=== PATIENT | male | born 1995 | race Caucasian/White ===

== ENCOUNTER 2024-12-18 23:29 | Day surgery (SDC) | payer OTHER, SELFPAY ==
[2024-12-18 14:40] VITALS: BMI 20.4
[2024-12-18 14:46] VITALS: BP 128/92
[2024-12-18 15:11] LABS: Hematocrit 47.3 % (39.0-52.0); Hemoglobin 16.5 g/dL (13.0-18.0); Mean Corp Hgb Conc. 34.9 g/dL (33.0-37.0); Mean Corpuscular Volume 86.2 fL (80.0-94.0); Nucleated Red Blood Cells % 0 % (-); Platelet Count 234 10^3/uL (130-400); Red Cell Dist. Width 12.3 % (11.5-14.5)
[2024-12-18 15:26] LABS: ALT (SGPT) 26 U/L (0-50); AST (SGOT) 22 U/L (17-59); Albumin 5.2 g/dl (3.5-5.0); Alkaline Phosphatase 52 U/L (38-126); Blood Urea Nitrogen 10 mg/dl (9-20); Calcium 10.1 mg/dl (8.4-10.2); Carbon Dioxide 28 mmol/L (22-30); Chloride 102 mmol/L (98-107); Glucose 105 mg/dl (70-99); Lipase 70 U/L (23-300); Potassium 4.2 mmol/L (3.5-5.1); Sodium 137 mmol/L (135-145); Total Protein 8.7 g/dl (6.3-8.2); eGFR > 60.00
[2024-12-18 15:45] LABS: Urine Character Clear (Clear)
--- NOTE | 2024-12-18 17:14 | ED.GENMED ---
History of Present Illness
<VEGA Rucker - Last Filed: 12/20/24 13:15>
General
Chief Complaint: Abdominal Pain
Source: patient
Exam Limitations: none
Time Seen by Provider: 12/18/24 16:43
Nursing documentation reviewed up to this point in time: agreed with
History of Present Illness
History of Present Illness:
29 yr old male presents to the ER for evaluation of right lower quadrant pain which started last night. Patient was able to sleep however woke up with persistent pain. He does feel slight pain on the right back but this feels more of an ache. He
denies any nausea vomiting diarrhea. He reports minimal burning with urination. No prior history kidney stone. No injury. Patient denies any testicle pain.
Past History
<VEGA Rucker - Last Filed: 12/20/24 13:15>
Past History
ED Past Medical History: None
ED Past Surgical History: None
Social History
Tobacco: Non-smoker
Phy Exam
<VEGA Rucker - Last Filed: 12/20/24 13:15>
General Physical Exam
General Presentation: no apparent distress
General age: appears stated age
General Skin: warm and dry
General Habitus: normal
General Mental: alert
General Hydration: appears well hydrated
Gastrointestinal Exam
Gastrointestinal Exam: soft and other (RLQ tenderness )
Neurological Exam
Neurological Exam: alert and oriented x3
Musculoskeletal Exam
Musculoskeletal Exam: full ROM
Skin Exam
Skin Exam: normal color and warm/dry
Psychiatric Exam
Psychiatric Exam: normal mood/affect
Course
<VEGA Rucker - Last Filed: 12/20/24 13:15>
Orders/Labs/Results
Orders:
Orders
12/18/24 14:55
Complete Blood Count/With Diff Urgent
Comprehensive Metabolic Panel Urgent
Lipase Urgent
12/18/24 15:19
Urinalysis Reflex To Culture Urgent
Date Specimen was Collected: 12/18/24
Time Specimen was Collected: 14:50
Urine Microscopic Reflex Cult Urgent
Urine Culture Urgent
DWIGHT Source: U
Specimen Description:
Date Specimen was Collected: 12/18/24
Time Specimen was Collected: 14:50
12/18/24 17:12
Iohexol [Omnipaque] See Protocol PO NOW STA
12/18/24 17:13
CT Abd/pel W Iv And Oral Contr Urgent
Comment:
Reason For Exam: rlq pain
0.9% Sodium Chloride 1000 ml [Nss] 1,000 ml IV BOLUS
Ketorolac [Toradol] 15 mg IV NOW STA
12/18/24 21:28
Piperacillin/Tazo 3.375 Gram [Zosyn] 3.375 gram in 50 ml IV NOW
12/18/24 21:38
Morphine Sulfate 4 mg IV NOW STA
12/18/24 23:00
Admit/Transfer Patient As Directed
Co-Sign Provider:
Level of Care: Observation services
Assign to:: Medical/Surgical
Physician / Group: Dr. Lanre Sykes, General Surgery
Diagnosis: Acute appendicitis
12/18/24 23:01
PRN Pain Medication Management As Directed
May give lesser potent ordered pain med per pt: Yes
preference::
Protocol:: Medication orders for pain may be administered in a
manner that supports deferring to patient preference
when the pt is:
- Requesting an ordered lesser potent pain medication.
Least to most potent pain medications are defined
as: acetaminophen < NSAID < tramadol < opioids
(morphine, oxycodone, hydromorphone).
- Requesting a lesser dose of the same medication IF
ORDERED.
- Requesting a less intrusive route of administration
if both routes are prescribed by the provider (PO <
IV).
12/18/24 23:02
Code Status As Directed
Resuscitation Status: Full Code
12/18/24 23:26
Morphine Sulfate 2 mg IV Q2HPRN PRN
12/19/24 00:51
Benzocaine/Menthol [Anesthetic Lozenge] 1 lozenge PO Q4HPRN PRN
Lactated Ringers [Lr] 1,000 ml IV 75 mls/hr
Morphine Sulfate 4 mg IV Q2HPRN PRN
Ondansetron Injectable [Zofran] 4 mg IV Q6HPRN PRN
12/19/24 00:51
Activity As Directed
Activity Level: Out of Bed-Early Mobility
Anti-embolism (JOSELIN) Hose As Directed
Type: Thigh high
Intake/ Output As Directed
Frequency: Per unit guidelines
Pneumatic Compression Sleeves As Directed
Type: Thigh high
Vital Signs As Directed
Frequency: Per unit guidelines
O2 Therapy [RESP] Routine
Titrate/Wean O2 to maintain O2 sat greater than (%): 92
DX Deep Vein Thrombosis Video Routine
12/19/24 02:00
Piperacillin/Tazo 3.375 Gram [Zosyn] 3.375 gram in 50 ml IV Q6H
12/19/24 06:00
Electrocardiogram (*1) IN AM
Reason for Study: PreOp
NPO
Allow oral meds: Yes
Allow clear liquids: No
NPO with Ice Chips: No
12/19/24 06:42
Acetaminophen [Tylenol] 650 mg PO Q4HPRN PRN
12/19/24 07:38
Basic Metabolic Panel IN AM
Complete Blood Count/No Diff IN AM
12/19/24 08:01
HYDROmorphone [Dilaudid] 1 mg .ROUTE .STK-MED ONE
12/19/24 09:40
Fentanyl Citrate/Pf [Sublimaze] 25 mcg IV [id number] PRN
HYDROmorphone [Dilaudid] 0.25 mg IV PACU-Q5MPRN PRN
HYDROmorphone [Dilaudid] 0.5 mg IV PACU-Q5MPRN PRN
Ondansetron Injectable [Zofran] 4 mg IV PACU-ONCEPRN PRN
Prochlorperazine [Compazine] 5 mg IV PACU-ONCEPRN PRN
Notify MD As Directed
Notify physician if: for SDS patients with known or suspected sleep obstructive sleep apnea, monitor in the
PACU.
Notify MD for any apneic/desaturation episodes
O2 Therapy [RESP] Urgent
Titrate/Wean O2 to maintain O2 sat greater than (%): 92
Special Instructions: -Provide supplemental oxygen to achieve O2 sat of 92% or greater.
-After 15 min, may wean O2 and discontinue if patient is able to maintain O2 sat of 92%
or greater during recovery period.
If patient is a discharge home, without oxygen therapy, notify anestheiologist if
unable to maintain O2 SAT of 92% or greater on room air for MD clearance.
12/19/24 09:45
Normosol (Mult Electrolytes) [Normosol-R/Plasmalyte-A] 1,000 ml IV PER PROTOCOL
12/19/24 Lunch
Regular
At Your Request: Full Participation
Does patient need a safe tray?: No
12/19/24 10:05
Dexamethasone Sod Phosphate [Decadron] 20 mg .ROUTE .STK-MED ONE
Fentanyl Citrate/Pf [Sublimaze] 100 mcg .ROUTE .STK-MED ONE
Lidocaine HCl/Pf [Xylocaine-Mpf 1% Vial] 50 mg .ROUTE .STK-MED ONE
Midazolam HCl [Versed] 2 mg .ROUTE .STK-MED ONE
Ondansetron Injectable [Zofran] 4 mg .ROUTE .STK-MED ONE
Propofol [Diprivan] 20 ml .ROUTE .STK-MED
Rocuronium Melvin [Rocuronium] 50 mg .ROUTE .STK-MED ONE
12/19/24 10:11
Glucagon [GlucaGen] 1 mg .ROUTE .STK-MED ONE
12/19/24 11:03
Bupivacaine 0.25%Pf/Epinephrin [Sensorcaine-Epi 0.25%-0.0005] 30 ml .ROUTE .STK-MED ONE
12/19/24 11:53
OR Pathology Routine
Pre-Operative Diagnosis: ACUTE APPENDICITIS
Post-Operative Diagnosis: SAME
Operative Procedure: LAP APPY
Surgeon: KHADRA
Circulating Nurse: SANDRO
Specimen Type: APPENDIX
12/19/24 12:11
Ketorolac [Toradol] 30 mg .ROUTE .STK-MED ONE
12/19/24 12:16
ePHEDrine SULFATE [Emerphed] 50 mg .ROUTE .STK-MED ONE
12/19/24 12:21
Admit Patient As Directed
Co-Sign Provider:
Level of Care: Post Proc/Surg Recovery
Assign to:: Medical/Surgical
Physician / Group: Khadra / JIMMY
Diagnosis: Acute appendicitis
Reason for Overnight Stay: Standard of Care
Ketorolac [Toradol] 10 mg IV Q6HPRN PRN
Oxycodone [Roxicodone] 5 mg PO Q4HPRN PRN
Intake/ Output As Directed
Frequency: Per unit guidelines
PRN Pain Medication Management As Directed
May give lesser potent ordered pain med per pt: Yes
preference::
Protocol:: Medication orders for pain may be administered in a
manner that supports deferring to patient preference
when the pt is:
- Requesting an ordered lesser potent pain medication.
Least to most potent pain medications are defined
as: acetaminophen < NSAID < tramadol < opioids
(morphine, oxycodone, hydromorphone).
- Requesting a lesser dose of the same medication IF
ORDERED.
- Requesting a less intrusive route of administration
if both routes are prescribed by the provider (PO <
IV).
12/19/24 12:22
Rx Incentive Spirometry [RESP] Routine
Frequency: q1h while awake
# of times per hour: 10
12/19/24 12:30
Normosol (Mult Electrolytes) [Normosol-R/Plasmalyte-A] 1,000 ml IV 75 mls/hr
12/19/24 16:15
Discharge Patient As Directed
Do you have a designated caregiver: No
12/19/24 18:00
Enoxaparin Sodium [Lovenox] 40 mg SC QPM
Abnormal Lab Results
12/18/24 12/18/24 12/19/24
14:55 15:19 07:38
RBC 4.58 L 10^6/uL
(4.70-6.10)
Absolute Neuts (auto) 6.8 H 10^3/uL
(1.4-6.5)
Absolute Lymphs (auto) 1.1 L 10^3/uL
(1.2-3.4)
Absolute Monos (auto) 0.9 H 10^3/uL
(0.1-0.6)
Neutrophils % 76.3 H %
(42.2-75.2)
Lymphocytes % 12.3 L %
(20.5-51.1)
Monocytes % 9.9 H %
(1.7-9.3)
Glucose 105 H mg/dl
(70-99)
Total Protein 8.7 H g/dl
(6.3-8.2)
Albumin 5.2 H g/dl
(3.5-5.0)
Urine Ketones 1+ A
(Negative)
Ur Occult Blood Reflex 3+ A
(Negative)
Leukocyte Esterase Rfl 1+ A
(Negative)
Urine Albumin (Reflex) 2+ A
(Neg - Trace)
12/19/24 07:38
12/19/24 07:38
Vital Signs
Initial and Last Documented VS:
Initial Vital Signs
Temp Pulse Resp BP Pulse Ox
98.3 F 94 18 128/92 94
12/18/24 14:46 12/18/24 14:46 12/18/24 14:46 12/18/24 14:46 12/18/24 14:46
Last Documented Vital Signs
Temp Pulse Resp BP Pulse Ox
98.8 F 85 18 107/59 98
12/19/24 16:35 12/19/24 16:35 12/19/24 16:35 12/19/24 16:35 12/19/24 16:35
<Nikia Taylor PA-C - Last Filed: 12/19/24 01:49>
Orders/Labs/Results
Orders:
Orders
12/18/24 14:55
Complete Blood Count/With Diff Urgent
Comprehensive Metabolic Panel Urgent
Lipase Urgent
12/18/24 15:19
Urinalysis Reflex To Culture Urgent
Date Specimen was Collected: 12/18/24
Time Specimen was Collected: 14:50
Urine Microscopic Reflex Cult Urgent
Urine Culture Urgent
DWIGHT Source: U
Specimen Description:
Date Specimen was Collected: 12/18/24
Time Specimen was Collected: 14:50
12/18/24 17:12
Iohexol [Omnipaque] See Protocol PO NOW STA
12/18/24 17:13
CT Abd/pel W Iv And Oral Contr Urgent
Comment:
Reason For Exam: rlq pain
0.9% Sodium Chloride 1000 ml [Nss] 1,000 ml IV BOLUS
Ketorolac [Toradol] 15 mg IV NOW STA
12/18/24 21:28
Piperacillin/Tazo 3.375 Gram [Zosyn] 3.375 gram in 50 ml IV NOW
12/18/24 21:38
Morphine Sulfate 4 mg IV NOW STA
12/18/24 23:00
Admit/Transfer Patient As Directed
Co-Sign Provider:
Level of Care: Observation services
Assign to:: Medical/Surgical
Physician / Group: Dr. Lanre Sykes, General Surgery
Diagnosis: Acute appendicitis
12/18/24 23:01
PRN Pain Medication Management As Directed
May give lesser potent ordered pain med per pt: Yes
preference::
Protocol:: Medication orders for pain may be administered in a
manner that supports deferring to patient preference
when the pt is:
- Requesting an ordered lesser potent pain medication.
Least to most potent pain medications are defined
as: acetaminophen < NSAID < tramadol < opioids
(morphine, oxycodone, hydromorphone).
- Requesting a lesser dose of the same medication IF
ORDERED.
- Requesting a less intrusive route of administration
if both routes are prescribed by the provider (PO <
IV).
12/18/24 23:02
Code Status As Directed
Resuscitation Status: Full Code
12/18/24 23:26
Morphine Sulfate 2 mg IV Q2HPRN PRN
12/19/24 00:51
Benzocaine/Menthol [Anesthetic Lozenge] 1 lozenge PO Q4HPRN PRN
Lactated Ringers [Lr] 1,000 ml IV 75 mls/hr
Morphine Sulfate 4 mg IV Q2HPRN PRN
Ondansetron Injectable [Zofran] 4 mg IV Q6HPRN PRN
12/19/24 00:51
Activity As Directed
Activity Level: Out of Bed-Early Mobility
Anti-embolism (JOSELIN) Hose As Directed
Type: Thigh high
Intake/ Output As Directed
Frequency: Per unit guidelines
Pneumatic Compression Sleeves As Directed
Type: Thigh high
Vital Signs As Directed
Frequency: Per unit guidelines
O2 Therapy [RESP] Routine
Titrate/Wean O2 to maintain O2 sat greater than (%): 92
DX Deep Vein Thrombosis Video Routine
12/19/24 02:00
Piperacillin/Tazo 3.375 Gram [Zosyn] 3.375 gram in 50 ml IV Q6H
12/19/24 06:00
Electrocardiogram (*1) IN AM
Reason for Study: PreOp
NPO
Allow oral meds: Yes
Allow clear liquids: No
NPO with Ice Chips: No
12/19/24 06:42
Acetaminophen [Tylenol] 650 mg PO Q4HPRN PRN
12/19/24 07:38
Basic Metabolic Panel IN AM
Complete Blood Count/No Diff IN AM
12/19/24 08:01
HYDROmorphone [Dilaudid] 1 mg .ROUTE .STK-MED ONE
12/19/24 09:40
Fentanyl Citrate/Pf [Sublimaze] 25 mcg IV [id number] PRN
HYDROmorphone [Dilaudid] 0.25 mg IV PACU-Q5MPRN PRN
HYDROmorphone [Dilaudid] 0.5 mg IV PACU-Q5MPRN PRN
Ondansetron Injectable [Zofran] 4 mg IV PACU-ONCEPRN PRN
Prochlorperazine [Compazine] 5 mg IV PACU-ONCEPRN PRN
Notify MD As Directed
Notify physician if: for SDS patients with known or suspected sleep obstructive sleep apnea, monitor in the
PACU.
Notify MD for any apneic/desaturation episodes
O2 Therapy [RESP] Urgent
Titrate/Wean O2 to maintain O2 sat greater than (%): 92
Special Instructions: -Provide supplemental oxygen to achieve O2 sat of 92% or greater.
-After 15 min, may wean O2 and discontinue if patient is able to maintain O2 sat of 92%
or greater during recovery period.
If patient is a discharge home, without oxygen therapy, notify anestheiologist if
unable to maintain O2 SAT of 92% or greater on room air for MD clearance.
12/19/24 09:45
Normosol (Mult Electrolytes) [Normosol-R/Plasmalyte-A] 1,000 ml IV PER PROTOCOL
12/19/24 Lunch
Regular
At Your Request: Full Participation
Does patient need a safe tray?: No
12/19/24 10:05
Dexamethasone Sod Phosphate [Decadron] 20 mg .ROUTE .STK-MED ONE
Fentanyl Citrate/Pf [Sublimaze] 100 mcg .ROUTE .STK-MED ONE
Lidocaine HCl/Pf [Xylocaine-Mpf 1% Vial] 50 mg .ROUTE .STK-MED ONE
Midazolam HCl [Versed] 2 mg .ROUTE .STK-MED ONE
Ondansetron Injectable [Zofran] 4 mg .ROUTE .STK-MED ONE
Propofol [Diprivan] 20 ml .ROUTE .STK-MED
Rocuronium Melvin [Rocuronium] 50 mg .ROUTE .STK-MED ONE
12/19/24 10:11
Glucagon [GlucaGen] 1 mg .ROUTE .STK-MED ONE
12/19/24 11:03
Bupivacaine 0.25%Pf/Epinephrin [Sensorcaine-Epi 0.25%-0.0005] 30 ml .ROUTE .STK-MED ONE
12/19/24 11:53
OR Pathology Routine
Pre-Operative Diagnosis: ACUTE APPENDICITIS
Post-Operative Diagnosis: SAME
Operative Procedure: LAP APPY
Surgeon: KHADRA
Circulating Nurse: SANDRO
Specimen Type: APPENDIX
12/19/24 12:11
Ketorolac [Toradol] 30 mg .ROUTE .STK-MED ONE
12/19/24 12:16
ePHEDrine SULFATE [Emerphed] 50 mg .ROUTE .STK-MED ONE
12/19/24 12:21
Admit Patient As Directed
Co-Sign Provider:
Level of Care: Post Proc/Surg Recovery
Assign to:: Medical/Surgical
Physician / Group: Khadra / JIMMY
Diagnosis: Acute appendicitis
Reason for Overnight Stay: Standard of Care
Ketorolac [Toradol] 10 mg IV Q6HPRN PRN
Oxycodone [Roxicodone] 5 mg PO Q4HPRN PRN
Intake/ Output As Directed
Frequency: Per unit guidelines
PRN Pain Medication Management As Directed
May give lesser potent ordered pain med per pt: Yes
preference::
Protocol:: Medication orders for pain may be administered in a
manner that supports deferring to patient preference
when the pt is:
- Requesting an ordered lesser potent pain medication.
Least to most potent pain medications are defined
as: acetaminophen < NSAID < tramadol < opioids
(morphine, oxycodone, hydromorphone).
- Requesting a lesser dose of the same medication IF
ORDERED.
- Requesting a less intrusive route of administration
if both routes are prescribed by the provider (PO <
IV).
12/19/24 12:22
Rx Incentive Spirometry [RESP] Routine
Frequency: q1h while awake
# of times per hour: 10
12/19/24 12:30
Normosol (Mult Electrolytes) [Normosol-R/Plasmalyte-A] 1,000 ml IV 75 mls/hr
12/19/24 16:15
Discharge Patient As Directed
Do you have a designated caregiver: No
12/19/24 18:00
Enoxaparin Sodium [Lovenox] 40 mg SC QPM
Abnormal Lab Results
12/18/24 12/18/24 12/19/24
14:55 15:19 07:38
RBC 4.58 L 10^6/uL
(4.70-6.10)
Absolute Neuts (auto) 6.8 H 10^3/uL
(1.4-6.5)
Absolute Lymphs (auto) 1.1 L 10^3/uL
(1.2-3.4)
Absolute Monos (auto) 0.9 H 10^3/uL
(0.1-0.6)
Neutrophils % 76.3 H %
(42.2-75.2)
Lymphocytes % 12.3 L %
(20.5-51.1)
Monocytes % 9.9 H %
(1.7-9.3)
Glucose 105 H mg/dl
(70-99)
Total Protein 8.7 H g/dl
(6.3-8.2)
Albumin 5.2 H g/dl
(3.5-5.0)
Urine Ketones 1+ A
(Negative)
Ur Occult Blood Reflex 3+ A
(Negative)
Leukocyte Esterase Rfl 1+ A
(Negative)
Urine Albumin (Reflex) 2+ A
(Neg - Trace)
12/19/24 07:38
12/19/24 07:38
Vital Signs
Initial and Last Documented VS:
Initial Vital Signs
Temp Pulse Resp BP Pulse Ox
98.3 F 94 18 128/92 94
12/18/24 14:46 12/18/24 14:46 12/18/24 14:46 12/18/24 14:46 12/18/24 14:46
Last Documented Vital Signs
Temp Pulse Resp BP Pulse Ox
98.8 F 85 18 107/59 98
12/19/24 16:35 12/19/24 16:35 12/19/24 16:35 12/19/24 16:35 12/19/24 16:35
<VEGA Rucker - Last Filed: 12/20/24 13:15>
MDM/Problems Addressed
Differential Diagnosis Includes:
Not limited to appendicitis, kidney stone
MDM/Problems Addressed:
Patient is a 29 year-old male presented with right lower quadrant pain, tender on exam CAT scan at this time pending.
Care of patient this time transferred to Henrietta Taylor, PAC. nml labs.
<VEGA Rucker - Last Filed: 12/20/24 13:15>
*Pulse Oximetry
SaO2: 95
Oxygen Mode of Delivery: Room air
Patient hypoxic: no
<Nikia Taylor PA-C - Last Filed: 12/19/24 01:49>
*EKG
Interpreted by ED Provider?: NA
*Ground Layer Interpretation
Rate: Ground Layer- N/A
*Critical Care Note
Total Time (30-74mins, 75-104mins- exclusive of procedures): Not Applicable
<Nikia Taylor PA-C - Last Filed: 12/19/24 01:49>
Patient Management
Discussion with other providers: Business [employer] (Case discussed with general surgery)
<Nikia Taylor PA-C - Last Filed: 12/19/24 01:49>
Update Note
Update Note:
Update 9:15 PM: I assumed care of patient pending CT scan which reveals acute appendicitis without evidence of perforation or abscess. I evaluated patient at bedside to discuss results he remains well-appearing and in no distress. He does report
some progressing pain in his abdomen following Toradol earlier today. Case discussed with general surgeon, Dr. Sykes. Plan for admission with plan for OR tomorrow for appendectomy, n.p.o. at midnight. Zosyn and dose of morphine given in ED.
Patient accepted to general surgery service in stable condition.
ED Attending Note
<VEGA Rucker - Last Filed: 12/20/24 13:15>
-
Portions of this chart may have been created with voice recognition software.� Occasional wrong word or��sound alike� substitutions may have occurred due to the inherent limitations of voice recognition software.
Discharge Plan
Departure
Patient Disposition: Admit
Date of Disposition: 12/18/24
Time of Disposition: 21:26
Admit to doctor: Dr. Sykes
Presentation/result/management discussed w/ accepting MD/DO: General Surgery
Discharge Problem:
Acute appendicitis
Interventions
Interventions:
*Risk Screen - Suicide Last Done: 12/18/24 14:49
*General Assessment Last Done: 12/18/24 14:49
*Neglect/Abuse Screening Last Done: 12/18/24 14:49
*ED- Fall Risk Assessment Last Done: 12/18/24 17:18
*ED COVID-19 Vaccine History Last Done: 12/18/24 14:49
*Nursing Disposition Last Done: 12/19/24 00:53
YF-[id number] Assessment Last Done: 12/18/24 17:17
Discharge Date and Time
Discharge Date/Time: 12/19/24 00:54
[2024-12-18] MEDS: OMNIPAQUE 50 ML PO (17:21)
[2024-12-18] MEDS: TORADOL 15 MG IV (17:21)
[2024-12-18] MEDS: NSS 1000 IV (17:22)
[2024-12-18 18:11] VITALS: BP 125/89
[2024-12-18 18:25] LABS: Urine Squamous Cell 0-2 /LPF (Few)
[2024-12-18 18:26] LABS: Urine Red Blood Cell 0-2 /HPF (0-2)
[2024-12-18 21:25] VITALS: BP 116/72
[2024-12-18] MEDS: ZOSYN 50 IV (21:38)
[2024-12-18] MEDS: MORPHINE SULFATE 4 MG IV (21:52)
--- NOTE | 2024-12-18 23:08 | HPS.HSE ---
Addendum entered and electronically signed by Donta Palma MD 12/19/24 06:55:
Patient seen and examined.
Patient is a 29 yo M with a PMH notable for open RIGHT inguinal hernia repair as a child who presents with 24 to 48 hours of RLQ abdominal pain. Mr. Ferguson states that his pain began acutely Wednesday evening at approximately 7 PM. He initially
attributed his symptoms to indigestion, however, after his symptoms persisted into Wednesday he decided to present to the ER. He reports continued RLQ abdominal discomfort. No nausea or vomiting. No fevers or chills. Diarrhea yesterday following
his oral contrast for his CT scan. He denies any chronic GI issues. No family history notable for IBD or colon cancers.
Gen: NAD
Abd: soft, tender in RLQ/flank, ND, no diffuse peritonitis, R groin incision well healed
Labs and CT scan imaging were reviewed.
Patient is a 29 yo M p/w acute appendicitis
The natural history and pathophysiology of appendicitis was discussed. CT scan imaging as a relates to his appendix was reviewed. Options for management including medical management with antibiotics versus surgical management with appendectomy
were considered and discussed. The pros and cons of both approaches was discussed. Specifically, we discussed failure of medical management and future episodes of appendicitis versus surgical risks. Recommended plan for appendectomy.
Plan for laparoscopic appendectomy. The procedure itself, as well as the risks, benefits, and alternatives was discussed. Specifically, we discussed the risks of bleeding, infection, injury to surrounding structures (bowel), staple line leak, need
for open procedure. Typical post procedure recovery was discussed. All questions answered. Consent signed.
-- Laparoscopic appendectomy
-- NPO, IVF
-- Pain control: Tylenol, IV Morphine as needed
-- Antibiotics: Zosyn
Original Note:
Family Physician
-
Family Physician: VEGA Boyce
Chief Complaint
-
Abdominal pain
History of Present Illness
Patient is a 29 year old male, with no significant past medical history, who presents to the emergency department with complaint of right lower quadrant abdominal pain. Patient states pain started around 7 pm the previous night, pain did not go
away, and persisted through out the day. He denies any nausea vomiting diarrhea. He reports minimal burning with urination. No prior history kidney stone. No injury. Patient denies any testicle pain.
In the emergency department, labs are unremarkable, vital signs stable, afebrile.
Abdomen/Pelvis CT showed: Findings consistent with acute appendicitis. No evidence of perforation nor abscess formation. Probably reactive change of the terminal ileum. Mild prostate hypertrophy.
Patient received NSS 1L bolus, Toradol, Dilaudid and IV antibiotics Zosyn 3.375 g IV x 1 dose.
ED provider, Nikia Taylor PA-C reviewed with General Surgery, Dr. Sykes, who is accepting the patient to his service.
Plan: NPO at midnight, IV antibiotics, IV fluids, pain management, and antiemetics.
Medical History
Past Medical History
Past Medical History: Reports GERD (improved w/diet)
Past Surgical History: Reports Orthopedic (left ankle fracture, 2018; right hand, 2018, ) and Other (Umbilical Hernia repair as infant)
Social History
Tobacco: Vaping
Alcohol: Occasional (three times a week, 1-2 drinks)
Drug: None
Personal: Single
Living: With Family
Family History
Family History: Not pertinent
Allergies / Home Medications
Allergies reflects when Allergies were last updated in [facility].
Home Medications with original date entered in [facility]
Allergy/Medication List:
Patient Allergies
Allergy/AdvReac Type Severity Reaction Status Date / Time
No Known Allergies Allergy Verified 12/18/24 14:50
Home Medications
�Medication �Instructions �Recorded
No Meds [No Current Medications] 04/16/19
Review of Systems
-
History Source: Patient
A 12 point ROS was completed and negative except as noted: Yes
Constitutional: Reports No Symptoms
EENT: Reports No Symptoms
Respiratory: Reports No Symptoms
Cardiac: Reports No Symptoms
Abdomen/GI: Reports Abdominal Pain (right lower quadrant abdominal pain)
: Reports No Symptoms
Musculoskeletal: Reports No Symptoms
Skin: Reports No Symptoms
Neurological: Reports No Symptoms
Psych: Reports No Symptoms
Physical Exam
Vital Signs
Vital Signs
Temp Pulse Resp BP Pulse Ox
98.3 F 78 16 116/72 98
12/18/24 14:46 12/18/24 21:25 12/18/24 21:25 12/18/24 21:25 12/18/24 21:25
Physical Exam
General: No Apparent Distress and Comfortable
HEENT: NormoCephalic, Moist mucous membranes and PERRLA
Respiratory: Clear and Non Labored Respirations
Cardiac: S1/S2 and Regular Rhythm
GI: Soft and Tender (right lower quadrant tenderness)
Musculoskeletal: No Edema
Skin: Warm and Dry
Neuro: Awake and Oriented
Psych: Calm and Intact Judgment/Insight
Laboratory Results
-
12/18/24 14:55
12/18/24 14:55
Laboratory Results
Total Bilirubin 1.2 mg/dl (0.2-1.3) 12/18/24 14:55
AST 22 U/L (17-59) 12/18/24 14:55
ALT 26 U/L (0-50) 12/18/24 14:55
Alkaline Phosphatase 52 U/L (38-126) 12/18/24 14:55
Lipase 70 U/L (23-300) 12/18/24 14:55
Data Reviewed
-
CT Scan: Report Reviewed by me
Lab Data: Labs Reviewed by me
Impression/Plan
-
IMPRESSION:
Patient is a 29 year old male, with no significant past medical history, who presents to the emergency department with complaint of right lower quadrant abdominal pain.
PLAN:
Acute appendicitis
-Admit to General Surgery, Med Surg under the service of Dr. Sykes
-CT Abd/Pelvis w/IV and oral contrast - Findings consistent with acute appendicitis. No evidence of perforation nor abscess formation. Probably reactive change of the terminal ileum. Mild prostate hypertrophy.
-NPO until seen by surgery, IV fluids LR @ 75 mls/hr
-IV antibiotics: Continued Zosyn 3.375 mg Q6H.
-Pain medication: Morphine
-Antiemetics: Zofran
DVT prophylaxis: SCD's
Code Status: Full Code
[2024-12-18 23:30] VITALS: BP 110/58
[2024-12-18] MEDS: MORPHINE SULFATE 2 MG IV (23:31)
[2024-12-19] VITALS (10 sets, daily range): BP systolic 107–124; BP diastolic 59–87; BMI 21.1
[2024-12-19] MEDS: LR 1000 IV (01:11)
[2024-12-19] MEDS: ZOSYN 50 IV ×3 (01:32→13:57)
[2024-12-19] MEDS: MORPHINE SULFATE 2 MG IV (01:38)
--- NOTE | 2024-12-19 06:55 | W.SUR.PREOP ---
Pre-Operative Surgical Note
-
I have examined this patient prior to the performance of the scheduled procedure.
The patient's condition is unchanged from the time of the current History and
Physical and the patient is able to undergo the scheduled procedure.
[2024-12-19 08:03] LABS: Hematocrit 40.0 % (39.0-52.0); Hemoglobin 13.7 g/dL (13.0-18.0); Mean Corp Hgb Conc. 34.3 g/dL (33.0-37.0); Mean Corpuscular Volume 87.3 fL (80.0-94.0); Platelet Count 194 10^3/uL (130-400); Red Cell Dist. Width 12.7 % (11.5-14.5)
[2024-12-19 08:42] LABS: Blood Urea Nitrogen 13 mg/dl (9-20); Calcium 9.4 mg/dl (8.4-10.2); Carbon Dioxide 27 mmol/L (22-30); Chloride 104 mmol/L (98-107); Estimated Creatinine Clearance 123 ml/min; Glucose 83 mg/dl (70-99); Potassium 3.9 mmol/L (3.5-5.1); Sodium 137 mmol/L (135-145); eGFR > 60.00
--- NOTE | 2024-12-19 09:55 | CM ---
Reviewed the chart notes and spoke with the patient at the bedside. Patient resides with a roommate in a two story home with no steps to enter. The patient reports no DME/VN/SNF in the past. The patient confirmed his pharmacy of choice is [facility]. Patient anticipates going to OR today for an appy. CM continues to be available to patient/family and is monitoring medical plan for needs at discharge.
Plan: Discharge plans will depend on the patient's progress.
--- NOTE | 2024-12-19 12:14 | W.IMMPOSTOP ---
Surgical Immed Post Op Note
-
Primary Surgeon: Louie
Assisting Surgeon: None
Pre-op Diagnosis: Acute appendicitis
Post-op Diagnosis: Acute appendicitis
Procedure Performed: Laparoscopic appendectomy
Anesthesia Type: General
Specimen / Cultures:
1. Appendix
Estimated Blood Loss: 3 cc
Complications: None
Operative Findings:
1. Acutely inflamed appendix, no evidence of perforation, serous reactive fluid in pelvis removed
2. Base taken with ferguson load stapler, mesentery with Ligasure
--- NOTE | 2024-12-19 13:30 | PTCARENOTE ---
1330 Pt arrived in bed from PACU. AAOX3. VSS. 4 lap sites OA with glue. bed locked and in lowest position. family at bedside
[2024-12-19] MEDS: TORADOL 10 MG IV (14:53)
== END 2024-12-19 17:17 | disposition home or self-care (01) ==
LOC: SDS 23:29
PROVIDERS: Emergency Medicine; Nurse Practitioner Family; ATTENDING PHYSICIAN Surgery; EMERGENCY PHYSICIAN Emergency Medicine; FAMILY PHYSICIAN Nurse Practitioner
DX: K35.80 Unspecified acute appendicitis (principal)
CPT/HCPCS: 44970; 74177; 80048; 80053; 81003; 81015; 83690; 85025; 85027; 87086; 88304; 93005; 96361; 96374; 96375; 99285; J1610; Q9967